=== PATIENT | male | born 1970 | race African-American/Black ===

== ENCOUNTER → 2023-10-13 10:15 | Outpatient (REF) | payer OTHER, SELFPAY ==
[2023-10-13 11:51] LABS: Rubella Positive
[2023-10-13 12:26] LABS: Hepatitis B Surface Antibody Negative
[2023-10-13 14:34] LABS: Rubeola (Measles) IgG Positive
[2023-10-16 14:14] LABS: Quantiferon Mitogen minus NIL 9.88 IU/mL; Quantiferon NIL 0.01 IU/mL; Quantiferon Plus TB2 minus NIL 0.01 IU/mL (0.00-0.34); Quantiferon TB Gold Plus Negative (Negative)
== END ==
LOC: OHS 10:15
PROVIDERS: ATTENDING PHYSICIAN Nurse Practitioner Family
DX: Z23 Encounter for immunization (principal)
CPT/HCPCS: 36415; 86480; 86706; 86735; 86762; 86765; 86787